=== PATIENT | male | born 1935 | race Caucasian/White ===

== ENCOUNTER 2024-01-14 23:59 | Outpatient (BNV) | payer MEDICARE, OTHER, SELFPAY | END 2024-01-18 23:59 | PROVIDERS: PCP Family Medicine Geriatric Medicine; Visit Provider Internal Medicine | DX: I48.91 Unspecified atrial fibrillation (principal); Z86.79 Personal history of other diseases of the circulatory system | CPT/HCPCS: 99223 ==

== ENCOUNTER 2024-03-20 23:42 | Emergency (ER) | payer MEDICARE, OTHER, SELFPAY ==
--- NOTE | ~2024-03-20 | CT_ITS ---
EXAMINATION: CT HEAD WITHOUT CONTRAST CT CERVICAL SPINE WITHOUT CONTRAST CLINICAL INFORMATION: Fall. Pain. COMPARISON: None available. TECHNIQUE: Contiguous axial imaging was performed through the head and cervical spine without intravenous administration of contrast. Sagittal and coronal reformatted images also obtained. This CT examination was performed using dose optimization techniques as appropriate, variously including the following: *Automated exposure control *Adjustment of mA and/or kV according to patient size (this includes techniques or standardized protocols for targeted exams where dose is matched to indication/reason for exam; i.e. extremities or head) *Use of iterative reconstruction technique DLP: 1000 mGy-cm FINDINGS: There is cerebral volume loss with prominence of the lateral and the third ventricles. The cortical sulci are widened appropriately. The fourth ventricle and basal cisterns are normally outlined. There is mild bilateral periventricular and central white matter diminished attenuation. There is no acute territorial defect, hemorrhage or midline shift. The extra-axial spaces are unremarkable. Calvarium/scalp: The calvarium is intact. There is right parietal scalp soft tissue swelling/hemorrhage/hematoma. Maxillofacial sinuses and mastoids: Clear as visualized. Cervical spine: There is minimal anterolisthesis C2 over C3. There is moderate C3-C4 to C6-C7 disc degenerative change with loss of disc space, endplate change and posterior osteophytes associated with diffuse [id number]-go-beorzcwg facet osteoarthritic hypertrophic change with multilevel mild spinal canal and vvvp-tl-nbqtknni neuroforaminal narrowing. No fracture is seen. The soft tissues are unremarkable the visualized upper lung michelle are clear. CT/CT cervical spine wo IV con IMPRESSION: 1. No acute intracranial process seen. 2. There is right parietal scalp soft tissue swelling/hemorrhage/hematoma without calvarial fracture. 3. There is no acute cervical spine fracture or malalignment. There is minimal anterolisthesis C2 over C3. There are degenerative disc changes and facet joint arthropathy throughout cervical spine.
--- NOTE | ~2024-03-20 | CT_ITS ---
EXAMINATION: CT HEAD WITHOUT CONTRAST CT CERVICAL SPINE WITHOUT CONTRAST CLINICAL INFORMATION: Fall. Pain. COMPARISON: None available. TECHNIQUE: Contiguous axial imaging was performed through the head and cervical spine without intravenous administration of contrast. Sagittal and coronal reformatted images also obtained. This CT examination was performed using dose optimization techniques as appropriate, variously including the following: *Automated exposure control *Adjustment of mA and/or kV according to patient size (this includes techniques or standardized protocols for targeted exams where dose is matched to indication/reason for exam; i.e. extremities or head) *Use of iterative reconstruction technique DLP: 1000 mGy-cm FINDINGS: There is cerebral volume loss with prominence of the lateral and the third ventricles. The cortical sulci are widened appropriately. The fourth ventricle and basal cisterns are normally outlined. There is mild bilateral periventricular and central white matter diminished attenuation. There is no acute territorial defect, hemorrhage or midline shift. The extra-axial spaces are unremarkable. Calvarium/scalp: The calvarium is intact. There is right parietal scalp soft tissue swelling/hemorrhage/hematoma. Maxillofacial sinuses and mastoids: Clear as visualized. Cervical spine: There is minimal anterolisthesis C2 over C3. There is moderate C3-C4 to C6-C7 disc degenerative change with loss of disc space, endplate change and posterior osteophytes associated with diffuse lktv-be-nhbokifg facet osteoarthritic hypertrophic change with multilevel mild spinal canal and wbow-sp-sapvenpp neuroforaminal narrowing. No fracture is seen. The soft tissues are unremarkable the visualized upper lung michelle are clear. CT/CT head/brain wo IV con IMPRESSION: 1. No acute intracranial process seen. 2. There is right parietal scalp soft tissue swelling/hemorrhage/hematoma without calvarial fracture. 3. There is no acute cervical spine fracture or malalignment. There is minimal anterolisthesis C2 over C3. There are degenerative disc changes and facet joint arthropathy throughout cervical spine.
[2024-03-20 23:57] VITALS: BP 130/67; BP 134/74; PULSE 58; PULSE 70; RESP 12; TEMP 37; O2SAT 100; O2SAT 97; BMI 22.4
--- NOTE | 2024-03-21 | ED_ITS ---
HPI - Fall General Chief Complaint: Fall Stated Complaint: FALLS,DEMENTIA Time Seen by Provider: 03/20/24 23:56 Source: EMS and RN notes reviewed Mode of arrival: EMS Limitations: other (Dementia) History of Present Illness ED Provider: christi HPI Narrative: Patient with dementia wheelchair-bound from assisted apparently got up from the wheelchair on Eliquis for AFib started walking fell backwards hitting his head to the ground unwitnessed but immediately seen by the nursing staff after the fall according to them patient was at baseline Related Data Allergies Allergy/AdvReac Type Severity Reaction Status Date / Time epinephrine Allergy Unknown Verified 03/21/24 00:00 Review of Systems 2 Review of Systems: Yes Unobtainable due to mental status (Dementia) [facility] Social History Social History Advance Directives: No Advance Directives Information Provided: Yes Do you have a plan to hurt others: No Plan Physical Exam 2 Vital Signs: Vital Signs: Last Vital Signs Temp 98.6 F 03/20/24 23:57 Pulse 58 03/20/24 23:57 Resp 12 03/20/24 23:57 BP 130/67 03/20/24 23:57 Pulse Ox 100 03/20/24 23:57 O2 Del Method Room Air 03/20/24 23:57 BMI result Body Mass Index 22.4 Appearance: Alert. With dementia No acute distress. Eyes: PERRLA, No Nystagmus ENT: Pharynx normal. Oral Mucosa moist large hematoma right parietal area Neck: Normal inspection. Neck supple. In cervical collar no midline tenderness CVS: Irregularly irregular heart rate. Pulses normal. Respiratory: No respiratory distress. Equal air entry bilateral, no wheezing/rales/rhonchi Abdomen: Soft and nontender. Bowel sounds are present, no mass palpable, no CVA tenderness Skin: Skin warm and dry. Normal skin color. Normal skin turgor. Extremities: No lower extremity edema. No calf tenderness Neuro: Dementia No motor deficit. No focal deficits Medical Decision Making Medical Decision Making [facility] Narrative: Patient is status post mechanical fall labs are chronically stable no acute bleeding CT scan of the head and C-spine negative for acute Differential Diagnosis Differential Diagnoses: The differential diagnosis associated with the presentation includes SDH/SAH/cranial fracture Lab Data [facility] Lab Attestation statement: I reviewed the patient's lab results. 03/21/24 00:49 03/21/24 00:49 Labs: Lab Results 03/21/24 Range/Units 00:49 WBC 8.0 (4.8-10.8) X10*3/uL RBC 3.54 L (4.60-5.80) X10*6/uL Hgb 8.8 L (14.0-18.0) g/dl Hct 28.6 L (42.0-52.0) % MCV 80.8 (80.0-98.0) fL MCH 24.9 L (27.0-33.0) pg MCHC 30.8 L (31.0-36.0) g/dl RDW 17.4 H (11.0-16.0) % Plt Count 177 (160-400) X10*3/uL MPV 9.6 (9.4-12.4) fL Immature Gran % (Auto) 0.4 (0.0-0.4) % Neut % (Auto) 74.5 H (45-73) % Lymph % (Auto) 9.4 L (20-40) % Cameron % (Auto) 14.6 H (2-11) % Eos % (Auto) 0.9 (0-4) % Baso % (Auto) 0.2 (0-2) % Lymph # (Auto) 0.8 L (1.2-4.9) X10*3/uL Cameron # (Auto) 1.2 (0.1-1.2) X10*3/uL Eos # (Auto) 0.1 (0.0-0.4) X10*3/uL Baso # (Auto) 0.0 (0.0-0.2) X10*3/uL Abs Immat Gran (auto) 0.03 (0.00-0.03) X10*3/uL Absolute Neuts (auto) 6.0 (2.0-8.3) x10*3/uL Absolute Nucleated RBC 0.000 (0.0-0.012) X10*3/uL Nucleated RBC % (auto) 0.0 (0.0-0.2) /100WBC Sodium 135 (135-145) mmol/L Potassium 5.0 (3.3-5.1) mmol/L Chloride 103 (96-108) mmol/L Carbon Dioxide 24 (22-29) mmol/L Anion Gap 13 (12-20) BUN 40 H (9-16) mg/dL Creatinine 1.71 H (0.5-1.4) mg/dL Estim Creat Clear Calc 32.2 Estimated GFR 38 Random Glucose 141 H (60-115) mg/dL Calcium 8.9 (8.4-10.2) mg/dL Magnesium 2.1 (1.6-2.6) mg/dL Total Bilirubin 0.4 (0.0-1.0) mg/dL AST 25 (5-37) U/L ALT 18 (0-40) U/L Alkaline Phosphatase 79 (39-117) U/L Total Protein 6.6 (6.5-8.0) g/dL Albumin 3.3 L (3.5-5.0) g/dL Independent Interpretation I performed an independent interpretation of an: EKG and CT Scan Interpretation: Atrial fibrillation with heart rate 59 beats per minute no acute ST elevation no acute ischemia Radiology Impression Discussion of test interpretation with radiology: I have reviewed the radiologist's reading. Radiologist Impression: CT/CT head/brain wo IV con IMPRESSION: 1. No acute intracranial process seen. 2. There is right parietal scalp soft tissue swelling/hemorrhage/hematoma without calvarial fracture. 3. There is no acute cervical spine fracture or malalignment. There is minimal anterolisthesis C2 over C3. There are degenerative disc changes and facet joint arthropathy throughout cervical spine. Discharge Plan Discharge Clinical Impression: Fall, CHI (closed head injury) Patient Disposition: Xfer SNF Transfer Details: Patient's CT scan of the head and C-spine negative for acute Instructions: Fall Prevention for Older Adults (ED), Head Injury (ED) Additional Instructions: Care and cautions as advised Print Language: Setswana
--- NOTE | 2024-03-21 00:02 | ECG_ITS ---
Test Reason : FALL Blood Pressure : / mmHG Vent. Rate : 059 BPM Atrial Rate : 000 BPM P-R Int : 000 ms QRS Dur : 110 ms QT Int : 456 ms P-R-T Axes : 000 -19 128 degrees QTc Int : 451 ms Atrial fibrillation with slow ventricular response with premature ventricular or aberrantly conducted complexes Incomplete left bundle branch block ST & T wave abnormality, consider lateral ischemia Abnormal ECG No previous ECGs available Referred By: Coleman Hooper Electronically Signed By:JASON DO MD
--- NOTE | 2024-03-21 00:43 | MHC.EDTECH ---
this tech attempted to obtain lab work. pt difficult stick.
[2024-03-21 00:52] LABS: Basophils Percent Auto 0.2 % (0-2); Eosinophils Absolute Auto 0.1 X10*3/uL (0.0-0.4); Eosinophils Percent Auto 0.9 % (0-4); Hematocrit 28.6 % (42.0-52.0); Hemoglobin 8.8 g/dl (14.0-18.0); Imm Gran Abs Auto 0.03 X10*3/uL (0.00-0.03); Imm Gran Pct Auto 0.4 % (0.0-0.4); Lymphocytes Absolute Auto 0.8 X10*3/uL (1.2-4.9); Lymphocytes Percent Auto 9.4 % (20-40); MANUAL DIFF FLAG NO; Mean Corpuscular HGB Conc 30.8 g/dl (31.0-36.0); Mean Corpuscular Hemoglobin 24.9 pg (27.0-33.0); Mean Corpuscular Volume 80.8 fL (80.0-98.0); Mean Platelet Volume 9.6 fL (9.4-12.4); Monocytes Absolute Auto 1.2 X10*3/uL (0.1-1.2); Monocytes Percent Auto 14.6 % (2-11); Neutrophils Percent Auto 74.5 % (45-73); Platelet Count 177 X10*3/uL (160-400); Red Blood Count 3.54 X10*6/uL (4.60-5.80); Red Cell Distribution Width 17.4 % (11.0-16.0)
[2024-03-21 01:08] LABS: Alanine Aminotransferase 18 U/L (0-40); Albumin Level 3.3 g/dL (3.5-5.0); Alkaline Phosphatase 79 U/L (39-117); Anion Gap 13 (12-20); Aspartate Amino Transferase 25 U/L (5-37); Bilirubin Total 0.4 mg/dL (0.0-1.0); Blood Urea Nitrogen 40 mg/dL (9-16); Calcium 8.9 mg/dL (8.4-10.2); Carbon Dioxide 24 mmol/L (22-29); Chloride 103 mmol/L (96-108); Creatinine Clr Calc Pharmacy 32.2; Estimated Glomerular Filt Rate 38; Glucose Random 141 mg/dL (60-115); Magnesium 2.1 mg/dL (1.6-2.6); Sodium 135 mmol/L (135-145); Total Protein 6.6 g/dL (6.5-8.0)
[2024-03-21 02:43] VITALS: BP 117/51; PULSE 59; RESP 12; TEMP 36.7; O2SAT 96
[2024-03-21 07:22] VITALS: BP 117/51; PULSE 59; RESP 12; TEMP 36.7; O2SAT 96
== END 2024-03-21 07:23 | disposition skilled nursing facility (03) ==
PROVIDERS: Emergency Provider Internal Medicine; PCP Family Medicine
DX: S09.90XA Unspecified injury of head, initial encounter (principal); R51.9 Headache, unspecified; I48.91 Unspecified atrial fibrillation; M54.2 Cervicalgia; W05.0XXA Fall from non-moving wheelchair, initial encounter; Y93.89 Activity, other specified; Y92.89 Other specified places as the place of occurrence of the external cause; Y99.8 Other external cause status; Z79.01 Long term (current) use of anticoagulants
CPT/HCPCS: 36415; 70450; 72125; 80053; 83735; 85025; 93005; 99284

== ENCOUNTER → 2024-03-21 00:02 | Outpatient (BNV) | payer MEDICARE, OTHER, SELFPAY | PROVIDERS: Emergency Provider Internal Medicine; PCP Family Medicine; Visit Provider Internal Medicine Cardiovascular Disease | DX: I48.91 Unspecified atrial fibrillation (principal) | CPT/HCPCS: 93010 ==